=== PATIENT | male | born 1990 | race Caucasian/White ===

== ENCOUNTER 2024-11-15 19:48 | Emergency (ER) | payer SELFPAY ==
[~2024-11-15] VITALS: Ht 177.8 cm; Wt 78.9 kg
[2024-11-15] MEDS ORDERED: NAPR-1009 PO (21:46)
[2024-11-15 22:19] VITALS: BP 140/86; O2SAT 99
== END 2024-11-15 22:41 | disposition home or self-care (01) ==
LOC: ER 19:48
DX: S09.8XXA Other specified injuries of head, initial encounter (principal); M54.2 Cervicalgia; R51.9 Headache, unspecified; Z86.73 Personal history of transient ischemic attack (TIA), and cerebral infarction without residual deficits; Z79.899 Other long term (current) drug therapy; Y04.0XXA Assault by unarmed brawl or fight, initial encounter; Y93.89 Activity, other specified; Y92.89 Other specified places as the place of occurrence of the external cause; Y99.8 Other external cause status
CPT/HCPCS: 70450; 70486; 72125; A4606; A4663